=== PATIENT | male | born 1980 | race Caucasian/White ===

== ENCOUNTER 2017-05-24 16:41 | Emergency (ER) | payer SELFPAY ==
[2017-05-24 16:59] VITALS: RESP 18
--- NOTE | 2017-05-24 17:53 | ED ---
General Adult HPI - General Chief complaint: Animal Bite Stated complaint: Dog Bite Source: patient Mode of arrival: ambulatory Limitations: no limitations - History of Present Illness Initial comments: 37-year-old male presents to the emergency department for a chief complaint of dog bite to the left hand. Patient states this happened about an hour ago. Patient states it was the ex-'s dog that bit his hand unprovoked. Patient washed it out with water and soaked it in a soap and water tub at home before presenting to the emergency department. Patient states his tetanus is up-to- date. Patient states he has sensation in the entire left hand and can move all digits. Patient denies any increased swelling, redness, or warmth in the area since the bite occurred. Patient is currently filling out paperwork for the dog bite. - Related Data Previous Rx's Medication Instructions Recorded Amoxicillin/Potassium Clav 1 tab PO Q12HR #7 tab 05/24/17 [Augmentin 875-125 Tablet] Allergies Allergy/AdvReac Type Severity Reaction Status Date / Time No Known Allergies Allergy Verified 05/24/17 16:59 Review of Systems ROS Statement: Those systems with pertinent positive or pertinent negative responses have been documented in the HPI. ROS Other: All systems not noted in ROS Statement are negative. Past Medical History Past Medical History: No Reported History History of Any Multi-Drug Resistant Organisms: None Reported Additional Past Surgical History / Comment(s): right elbow ORIF Past Psychological History: No Psychological Hx Reported Smoking Status: Never smoker Past Alcohol Use History: Occasional Past Drug Use History: Marijuana General Exam Limitations: no limitations Respiratory exam: Present: normal lung sounds bilaterally. Absent: respiratory distress, wheezes, rales, rhonchi, stridor Cardiovascular Exam: Present: regular rate, normal rhythm, normal heart sounds. Absent: systolic murmur, diastolic murmur, rubs, gallop, clicks Extremities exam: Present: full ROM, normal capillary refill, other (There is a 1 cm shallow laceration to the palmar aspect of the left hand around the base of the fifth metacarpal. Wound is not actively bleeding at this time. No puncture wound present. Patient has bilateral radial pulses of 2+. He has full movement of all digits in the left hand. Capillary refill less than 2 seconds in all digits of the left hand. Neurovascular intact.). Absent: tenderness (No tenderness to palpation of the bones in the left hand. No pain with range of motion.), joint swelling Course Vital Signs 05/24/17 05/24/17 16:55 17:57 Temperature 99.1 F 98.5 F Pulse Rate 66 60 Respiratory 18 18 Rate Blood Pressure 138/73 130/76 O2 Sat by Pulse 98 98 Oximetry Medical Decision Making - Medical Decision Making 37-year-old male presents to the emergency department for a chief complaint of dog bite to the left hand. Patient states this occurred about an hour ago. It was his ex-'s dog and the bite was unprovoked. Patient cleaned it out well at home with water and soaked it in soap and water. Upon presentation to the emergency department patient's neurovascular status was intact. patient had full range of motion of all digits in the left hand. Capillary refill less than 2 seconds in all digits of the left hand. The wound was about 1 cm on the palmar aspect of the left hand near the base of the fifth metacarpal. Patient had no tenderness on movement of the hand or tenderness to palpation of the bones of the hand. The wound was soaked in sterile water and iodine solution. It was then irrigated with jet technique. Wound was not stitched as it actually comes together. It was left open so it can drain if necessary. Hand was not x-rayed as patient had no tenderness to palpation in the bones of the hand and no pain with full range of motion. A 4 x 4 was put over the laceration. Patient states his tetanus is up-to-date. Patient was educated on keeping the area clean. He can loosely cover it when needed but should leave it exposed to air often. If he begins to notice signs of infection he will return to the emergency department. He can follow up with primary care in 1-2 days. Disposition Clinical Impression: Dog bite Disposition: HOME SELF-CARE Condition: Good Instructions: Animal Bite (ED) Additional Instructions: Take full course of Augmentin as directed. Take ibuprofen and Tylenol for pain relief. Please follow-up with your primary care physician in 1 to 2 days. Please return to the Emergency Department if symptoms worsen or do not improve. Please return to the emergency department if you notice signs of infection. Prescriptions: Amoxicillin/Potassium Clav [Augmentin 875-125 Tablet] 1 tab PO Q12HR #7 tab Referrals: None,Stated [Primary Care Provider] - 1-2 days Time of Disposition: 17:52
[2017-05-24 18:04] VITALS: BP 130/76; PULSE 60; TEMP 98.5
== END 2017-05-24 17:57 | disposition home or self-care (01) ==
LOC: EC 16:41
DX: S61.412A Laceration without foreign body of left hand, initial encounter (principal); W54.0XXA Bitten by dog, initial encounter
CPT/HCPCS: 99282

== ENCOUNTER 2018-09-23 19:55 | Emergency (ER) | payer BC ==
[2018-09-23 20:17] VITALS: BP 131/86; PULSE 64; RESP 18; TEMP 99.1
[2018-09-23] MEDS ORDERED: DIAZEPAM 5 MG/ML 2 ML INJ IVP STA (20:23)
[2018-09-23] MEDS ORDERED: LIDOCAINE 5% PATCH TOPICAL STA (20:23)
[2018-09-23] MEDS ORDERED: KETOROLAC 30 MG/ML 1 ML VIAL IM STA (20:24)
[2018-09-23] MEDS ORDERED: DIAZEPAM 5 MG/ML 2 ML INJ IM STA (20:37)
[2018-09-23] MEDS ORDERED: ACET/COD 300 MG/30 MG STARTER PACK 6 TAB BTL PO STA (21:39)
--- NOTE | 2018-09-23 21:39 | ED ---
Back Pain HPI - General Chief Complaint: Back Pain/Injury Stated Complaint: Back Pain Time Seen by Provider: 09/23/18 20:00 Source: patient Limitations: no limitations - History of Present Illness Initial Comments: Patient is a 38-year-old male presenting to emergency Department with low back pain. Patient reports yesterday he was at the gym performing new abdominal and back exercises without issues. 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 Patient reports the pain is exacerbated with flexion and completely alleviated when standing straight or laying supine. Patient reports the pain is 1 in supine position. Patient reports the pain is sharp in nature and they 10 when flexed position. Patient reports the pain is located in his lumbar region. Patient reports the pain does not radiate anywhere. Patient reports taking Energy while at home with minimal improvement. Patient denies any numbness or tingling. Patient denies saddle paresthesia, urinary or bladder incontinence. No red flags. Patient denies any trauma to the lumbar region. - Related Data Previous Rx's Medication Instructions Recorded Amoxicillin/Potassium Clav 1 tab PO Q12HR #7 tab 05/24/17 [Augmentin 875-125 Tablet] Allergies Allergy/AdvReac Type Severity Reaction Status Date / Time No Known Allergies Allergy Verified 09/23/18 20:14 Review of Systems ROS Statement: Those systems with pertinent positive or pertinent negative responses have been documented in the HPI. ROS Other: All systems not noted in ROS Statement are negative. Past Medical History Past Medical History: No Reported History History of Any Multi-Drug Resistant Organisms: None Reported Past Surgical History: Orthopedic Surgery Additional Past Surgical History / Comment(s): right elbow ORIF Past Psychological History: No Psychological Hx Reported Smoking Status: Never smoker Past Alcohol Use History: Occasional Past Drug Use History: Marijuana General Exam Limitations: no limitations General appearance: alert, in no apparent distress Head exam: Present: atraumatic, normocephalic, normal inspection Eye exam: Present: normal appearance, PERRL, EOMI Pupils: Present: normal accommodation ENT exam: Present: normal exam, normal oropharynx, mucous membranes moist, TM's normal bilaterally, normal external ear exam Neck exam: Present: normal inspection, full ROM Respiratory exam: Present: normal lung sounds bilaterally Cardiovascular Exam: Present: regular rate, normal rhythm, normal heart sounds Extremities exam: Present: normal inspection, full ROM, other (+2 dorsalis pedis and posterior tibialis bilaterally) Back exam: Present: normal inspection, paraspinal tenderness (Right lumbar). Absent: full ROM (Plan range of motion with flexion of the back), tenderness (Minimal vertebral tenderness. Mild right paraspinal tenderness. Positive right leg raise test.), CVA tenderness (R), CVA tenderness (L), vertebral tenderness Neurological exam: Present: alert, oriented X3 Psychiatric exam: Present: normal affect, normal mood Skin exam: Present: warm, intact, normal color Course Vital Signs 09/23/18 20:14 Temperature 99.1 F Pulse Rate 64 Respiratory 18 Rate Blood Pressure 131/86 O2 Sat by Pulse 99 Oximetry Medical Decision Making - Medical Decision Making Patient is a 38-year-old male presenting to emergency Department with low back pain. I suspect the patient to have acute exacerbation of low back pain and is musculoskeletal in nature. No cauda equina signs and symptoms. Patient was given Toradol, Lidoderm patch and Valium. Patient reports mild improvement with treatment. Based on history and physical examination, vertebral imaging is not warranted at this time. Patient advised to follow-up with orthopedics for further management. Strict return parameters were thoroughly discussed with patient who is understanding and agreeable. Case discussed with physician. Disposition Clinical Impression: Mechanical back pain Disposition: HOME SELF-CARE Condition: Stable Instructions (If sedation given, give patient instructions): Acute Low Back Pain (ED) Additional Instructions: Please follow with orthopedics. Please return to the emergency department if symptoms worsen. Is patient prescribed a controlled substance at d/c from ED?: No Referrals: Lavinia Perez MD [Primary Care Provider] - 1-2 days Genaro Dee PAC [PHYSICIAN TYPESETTING MACHINE OPERATOR/TENDER] - 1-2 days Time of Disposition: 21:54
== END 2018-09-23 22:06 | disposition home or self-care (01) ==
LOC: EC 19:55
DX: M54.5 Low back pain (principal); Z53.8 Procedure and treatment not carried out for other reasons
CPT/HCPCS: 99283; 96372 ×2; J3360; J1885